=== PATIENT | female | born 1990 | race African-American/Black ===

== ENCOUNTER 2023-05-01 23:19 | Emergency (ER) | payer OTHER ==
--- OUTSIDE RECORDS SUMMARY | 2023-05-01 23:24 | XMS REPORT | Continuity of Care Document ---
:1990 Author Organization [facility] t Address [address] [facility] [place]. [address] [place] [address] Care Team Providers Name Role Phone Tiffany Huddleston Attending Clinician Unavailable Brendan Beckman Attending Clinician Unavailable DONNELL_LISA_Rk_Joss Attending Clinician Unavailable Roxann Givens Attending Clinician Unavailable Forrest Arriaza Attending Clinician Tiffany Huddleston Admitting Clinician Unavailable Brendan Beckman Admitting Clinician Unavailable DONNELL_LISA_Rk_Joss Admitting Clinician Unavailable Payers Payer Name Policy Type Policy Number Effective Date Expiration Date S ource Problems Condition Condition Condition Status Onset Resolution Last Treating Co mments Source Name Details Category Date Date Treatment Clinician Date fall Diagnosis Active 2016-06-07 Mem oria Active 06-06 03:31:00 l 06/06/2016 00:00: Regino BRAMBILA 00 [facility] Seizure Seizure Problem Resolve 2016-06-09 Armin emoria disorder disorder d 01:39:20 l (disorder) (disorder) Jonathan braxton Resolved Problem 06/09/2016 PATTY Salas History of Past Illness Condition Condition Condition Status Onset Resolution Last Treating Co mments Source Name Details Category Date Date Treatment Clinician Date Discharge Discharge Problem 2016-06-09 2016-06-09 Memoria Diagnosis: Diagnosis: 06-06 01:39:20 01:39:20 l Headache Headache 06:00: Regino n 06/06/2016 7 [facility] Discharge Discharge Problem 2016-06-09 2016-06-09 Memoria Diagnosis: Diagnosis: 06-06 01:39:20 01:39:20 l Seizure Seizure 06:00: [place] 06/06/2016 7 [facility] Allergies, Adverse Reactions, Alerts Allergy Allergy Status Severity Reaction(s) Onset Inactive Treating Comm ents Source Name Type Date Date Clinician [place] DA Active U UNKNOWN 2019- [facility] [place] REACTION 00:00: [address] Penicill DA Active U 2019- [facility] [place] 00:[facility]: [address] No Known DA Active U 2019-0 [facility] [address] [place] [address] No Known DA Active U 2020-0 [facility] [address] [place] [address] Social History Smoking Status Start Date Stop Date Source Social History [facility] Medications Ordered Filled Start Stop Current Ordering Indication Dosage Frequency Signature Comments Components Source Medication Medication Date Date Medication? 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 date: 06/06/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, Duration: 1 doses or times, Stop date: 06/06/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 Saline 2017- No Notes: Memoria Flush 0.9% 06-07 (Same as: l 00:30: BD [place] 00 Posiflush) Vital Signs Vital Name Observation Time Observation Value Comments Source Temperature Oral (F) 2016-06-07 03:30:00 97 F [facility] [place] Systolic (mm Hg) 2016-06-07 03:30:00 Ham rial [place] Diastolic (mm Hg) 2016-06-07 03:30:00 Mem orial Daljit Heart Rate 2016-06-07 03:30:00 [facility] Dalj[facility] Respitory Rate 2016-06-07 03:30:00 Memori al [place] Systolic (mm Hg) 2016-06-07 03:00:00 Ham rial Daljit Diastolic (mm Hg) 2016-06-07 03:00:00 Mem orial [place] Respitory Rate 2016-06-07 03:00:00 Memori al Daljit Heart Rate 2016-06-07 03:00:00 [facility] Respitory Rate 2016-06-07 02:00:00 Memori al Daljit Heart Rate 2016-06-07 02:00:00 [facility] Systolic (mm Hg) 2016-06-07 02:00:00 Ham rial [place] Diastolic (mm Hg) 2016-06-07 02:00:00 Mem orial [place] Height 2016-06-07 00:22:00 170.18 cm [facility] [place] Weight 2016-06-07 00:22:00 [facility] [place] BMI Calculated 2016-06-07 00:22:00 Memori al Daljit Temperature Oral (F) 2016-06-07 00:22:00 97.2 F [facility] [place] Procedures Procedure Date / Time Performed Performing Clinician Tammi bashir [id number] 2020-06-08 00:00:00 [facility] [id number] 2020-06-08 00:00:00 [facility] [id number] 2020-06-08 00:00:00 [facility] [id number] 2020-06-08 00:00:00 [facility] [id number] 2020-06-06 00:00:00 SHEGR [facility] Encounters Start End Encounter Admission Attending Care Care Encounter Source Date/Time Date/Time Type Type Clinicians Facility Department ID 2020-06-05 Inpatient DWIGHT Huddleston LD [id number] [facility] 17:00:00 Tiffany [facility] 2020-05-04 Inpatient DWIGHT Beckman FELICIANO [id number] [facility] 20:52:00 Brendan [facility] 2019-12-19 Inpatient HCAWH ISABEL [id number] [facility] 16:28:00 [facility] 2021-04-27 2021-04-27 Outpatient GC_SWHAOMC_ PRIV PRIV [id number] [facility] 06:02:00 06:02:00 Patrice [id number] [facility] 2021-03-16 2021-03-16 Inpatient EM CHARLI GivensWU ISABEL [id number] [facility] 18:03:00 19:03:[address] [place] [address] 2016-06-07 2016-06-07 Emergency [facility] [id number] Memoria 00:21:00 04:42:00 [facility] 00 l [facility] 2016-06-06 2016-06-06 Outpatient Forrest Arriaza [facility] [id number] 18:21:00 22:42:00 Major 00 Results Test Description Test Time Test Comments Results Result Comments Source HGB HCT 2020-06-09 05:55:00 Test Item Value Reference Range Interpretation Comme nts HEMOGLOBIN (test code = HGB) 9.5 g/dL 10.7-13.9 L HEMATOCRIT (test code = HCT) 28.8 % 32.1-42.1 L PROTHROMBIN [id number] 23:08:00 Test Item Value Reference Range Interpretation Comments PROTHROMBIN TIME PATIENT (test code 11.3 secs 10.4-12.4 N = PTP) IS PATIENT ON ANTICOAGULANTS ? NINTERNATIONAL NORMAL [id number] 23:08:00 Test Item Value Reference Range Interpretation Comments INTERNATIONAL NORMAL 1.05 The INR is to be used RATIO (test code = INR) only for monitoring oral anticoagulantth erapy. INDICATION INR VALUE 1. Prophylaxis inc luding high risk surge ry 2.0 - 2.52. Deep veno us thrombosis. Pul monary embolism. Atria l fibrillation or bioprosthetic h eart valves 2.0 - 3. 03. Mechanical hear t valves or recurrent sy stemic embolism. 3.0 - 3.5 IS PATIENT ON ANTICOAGULANTS ? NTHROMBOPLASTIN TIME [id number] 23:08:00 Test Item Value Reference Range Interpretation Comments THROMBOPLASTIN TIME PARTIAL (test 25.3 secs 22-38 N code = PTT) IS PATIENT ON ANTICOAGULANTS ? NLACTIC [id number] 22:50:00 Test Item Value Reference Range Interpretation Comments LACTIC ACID (test code = LACT) 1.4 MMOL/L 0.5-2.2 N COMPREHENSIVE METABOLIC [id number] 22:45:00 Test Item Value Reference Range Interpretation Comments SODIUM (test code = NA) 133 mEq/L 135-145 L POTASSIUM (test code = K) 3.4 mEq/L 3.5-5.0 L CHLORIDE (test code = CL) 100 mEq/L 100-115 N CARBON DIOXIDE (test code = CO2) 26 mEq/L 22-31 N ANION GAP (test code = GAP) 10.90 10-20 N GLUCOSE (test code = GLU) 85 mg/dL 65-110 N BLOOD UREA NITROGEN (test code = 6 mg/dL 7-18 L BUN) GLOMERULAR FILTRATION RATE (test 82 ml/min >60 N code = GFR) CREATININE (test code = CREAT) 0.9 mg/dL 0.5-1.0 N TOTAL PROTEIN (test code = PROT) 6.6 gm/dL 6.3-8.2 N ALBUMIN (test code = ALB) 2.3 gm/dL 3.4-4.8 L CALCIUM (test code = CA) 9.1 mg/dL 8.4-10.2 N BILIRUBIN TOTAL (test code = BILT) 0.4 mg/dL 0.2-1.0 N SGOT/AST (test code = AST) 17 units/L 15-37 N SGPT/ALT (test code = ALT) 20 units/L 12-78 N ALKALINE PHOSPHATASE TOTAL (test 99 units/L 46-116 N code = ALKP) CBC W/AUTO [id number] 22:36:00 Test Item Value Reference Range Interpretation Comments WHITE BLOOD CELL (test code = WBC) 12.5 K/mm3 6.6-12.1 H RED BLOOD CELL (test code = RBC) 3.72 M/mm3 3.45-5.01 N HEMOGLOBIN (test code = HGB) 11.1 g/dL 10.7-13.9 N HEMATOCRIT (test code = HCT) 34.0 % 32.1-42.1 N MEAN CELL VOLUME (test code = MCV) 91 fL 84.1-94.8 N MEAN CELL HGB (test code = MCH) 29.8 pg 27-35 N MEAN CELL HGB CONCETRATION (test 32.6 gm/dL 32.2-34.1 N code = MCHC) RED CELL DISTRIBUTION WIDTH (test 12.6 % 12.4-16.5 N code = RDW) PLATELET COUNT (test code = PLT) 203 K/mm3 133-385 N MEAN PLATELET VOLUME (test code = 11.1 fl 9.1-12.7 N MPV) NEUTROPHIL % (test code = NT%) 84.5 % 56.5-79.4 H LYMPHOCYTE % (test code = LY%) 7.5 % 14.3-34.3 L MONOCYTE % (test code = MO%) 7.4 % 5.1-10.4 N EOSINOPHIL % (test code = EO%) 0.0 % 0.1-3.0 L BASOPHIL % (test code = BA%) 0.1 % 0.1-1.0 N NEUTROPHIL # (test code = NT#) 10.6 K/mm3 LYMPHOCYTE # (test code = LY#) 0.9 K/mm3 MONOCYTE # (test code = MO#) 0.9 K/mm3 EOSINOPHIL # (test code = EO#) 0 K/mm3 BASOPHIL # (test code = BA#) 0.0 K/mm3 RBC MORPHOLOGY REQUIRED (test code NORMAL NORMAL = RBCM) PLATELET MORPHOLOGY REQUIRED (test NORMAL NORMAL code = PLTMR) COMPREHENSIVE METABOLIC [id number] 22:14:00 Test Item Value Reference Range Interpretation Comments SODIUM (test code = NA) 133 mEq/L 135-145 L POTASSIUM (test code = K) 3.7 mEq/L 3.5-5.0 N CHLORIDE (test code = CL) 99 mEq/L 100-115 L CARBON DIOXIDE (test code = CO2) 26 mEq/L 22-31 N ANION GAP (test code = GAP) 12.20 10-20 N GLUCOSE (test code = GLU) 82 mg/dL 65-110 N BLOOD UREA NITROGEN (test code = 6 mg/dL 7-18 L BUN) GLOMERULAR FILTRATION RATE (test 82 ml/min >60 N code = GFR) CREATININE (test code = CREAT) 0.9 mg/dL 0.5-1.0 N TOTAL PROTEIN (test code = PROT) 6.5 gm/dL 6.3-8.2 N ALBUMIN (test code = ALB) 2.6 gm/dL 3.4-4.8 L CALCIUM (test code = CA) 8.9 mg/dL 8.4-10.2 N BILIRUBIN TOTAL (test code = 0.5 mg/dL 0.2-1.0 N BILT) SGOT/AST (test code = AST) 27 units/L 15-37 N SGPT/ALT (test code = ALT) 22 units/L 12-78 N ALKALINE PHOSPHATASE TOTAL (test 107 units/L 46-116 N code = ALKP) URIC [id number] 22:14:00 Test Item Value Reference Range Interpretation Comments URIC ACID (test code = URIC) 4.7 mg/dL 2.6-6.0 N LACTIC DEHYDROGENASE(LDH)2020-06-07 22:14:00 Test Item Value Reference Range Interpretation Comments LACTIC DEHYDROGENASE(LDH) (test 188 units/L 81-234 N code = LDH) UR PROTEIN/CREATININE [id number] 22:07:00 Test Item Value Reference Range Interpretation Comments UR PROTEIN RANDOM (test code = 30.4 mg/dL PROTU) UR CREATININE RANDOM (test 75.2 mg/dL code = CREATU) PROTEIN/CREATININE RATIO (test 400.0 mg/gcrea <200 H code = P/CRATIO) CBC W/AUTO [id number] 21:48:00 Test Item Value Reference Range Interpretation Comments WHITE BLOOD CELL (test 12.4 K/mm3 6.6-12.1 H RESUL TS VERIFIED BY code = WBC) REPEAT ANALYSIS RED BLOOD CELL (test 3.73 M/mm3 3.45-5.01 N code = RBC) HEMOGLOBIN (test code = 11.0 g/dL 10.7-13.9 N HGB) HEMATOCRIT (test code = 33.7 % 32.1-42.1 N HCT) MEAN CELL VOLUME (test 90 fL 84.1-94.8 N code = MCV) MEAN CELL HGB (test code 29.5 pg 27-35 N = MCH) MEAN CELL HGB 32.6 gm/dL 32.2-34.1 N CONCETRATION (test code = MCHC) RED CELL DISTRIBUTION 12.5 % 12.4-16.5 N WIDTH (test code = RDW) PLATELET COUNT (test 218 K/mm3 133-385 N code = PLT) MEAN PLATELET VOLUME 11.0 fl 9.1-12.7 N (test code = MPV) NEUTROPHIL % (test code 83.6 % 56.5-79.4 H = NT%) LYMPHOCYTE % (test code 7.7 % 14.3-34.3 L = LY%) MONOCYTE % (test code = 8.1 % 5.1-10.4 N MO%) EOSINOPHIL % (test code 0.0 % 0.1-3.0 L = EO%) BASOPHIL % (test code = 0.1 % 0.1-1.0 N BA%) NEUTROPHIL # (test code 10.4 K/mm3 = NT#) LYMPHOCYTE # (test code 1.0 K/mm3 = LY#) MONOCYTE # (test code = 1.0 K/mm3 MO#) EOSINOPHIL # (test code 0 K/mm3 = EO#) BASOPHIL # (test code = 0.0 K/mm3 BA#) RBC MORPHOLOGY REQUIRED NORMAL NORMAL (test code = RBCM) PLATELET MORPHOLOGY NORMAL NORMAL REQUIRED (test code = PLTMR) AG HEPATITIS B [id number] 22:33:00 Test Item Value Reference Range Interpretation Comments AG HEPATITIS B SURFACE (test code NONREACTIVE NONREACTIVE = HBSAG) IS CONSENT FORM SIGNED FOR HIV TESTING? YAB HEPATITIS C [id number] 22:33:00 Test Item Value Reference Range Interpretation Comments AB HEPATITIS C (test code = NONREACTIVE NONREACTIVE HCVAB) SIGNAL TO CUTOFF (test code = <0.02 <0.80 N CUTOFF) IS CONSENT FORM SIGNED FOR HIV TESTING? YAB [id number] 22:33:00 Test Item Value Reference Range Interpretation Comments AB TREPONEMA (test code = TREPAB) NONREACTIVE NONREACTIVE IS CONSENT FORM SIGNED FOR HIV TESTING? YAB HIV 1 22:33:00 Test Item Value Reference Range Interpretation Comments AB HIV 1 2 (test NONREACTIVE NONREACTIVE [facility] code = EQP47RD) 4th Gen HIV Ag/Ab Combo Screen IS CONSENT FORM SIGNED FOR HIV TESTING? YAG HEPATITIS B [id number] 22:02:00 Test Item Value Reference Range Interpretation Comments AG HEPATITIS B SURFACE (test code NONREACTIVE NONREACTIVE = HBSAG) IS CONSENT FORM SIGNED FOR HIV TESTING? YAB HEPATITIS C [id number] 22:02:00 Test Item Value Reference Range Interpretation Comments AB HEPATITIS C (test code = HCVAB) NONREACTIVE SIGNAL TO CUTOFF (test code = CUTOFF) <0.80 IS CONSENT FORM SIGNED FOR HIV TESTING? YAB [id number] 22:02:00 Test Item Value Reference Range Interpretation Comments AB TREPONEMA (test code = TREPAB) NONREACTIVE NONREACTIVE IS CONSENT FORM SIGNED FOR HIV TESTING? YAB HIV 1 22:02:00 Test Item Value Reference Range Interpretation Comments AB HIV 1 2 (test code = [id number]) NONREACTIVE IS CONSENT FORM SIGNED FOR HIV TESTING? YCBC W/AUTO [id number] 21:17:00 Test Item Value Reference Range Interpretation Comments WHITE BLOOD CELL (test code = WBC) 5.6 K/mm3 6.6-12.1 L RED BLOOD CELL (test code = RBC) 3.71 M/mm3 3.45-5.01 N HEMOGLOBIN (test code = HGB) 10.9 g/dL 10.7-13.9 N HEMATOCRIT (test code = HCT) 33.4 % 32.1-42.1 N MEAN CELL VOLUME (test code = MCV) 90 fL 84.1-94.8 N MEAN CELL HGB (test code = MCH) 29.4 pg 27-35 N MEAN CELL HGB CONCETRATION (test 32.6 gm/dL 32.2-34.1 N code = MCHC) RED CELL DISTRIBUTION WIDTH (test 12.6 % 12.4-16.5 N code = RDW) PLATELET COUNT (test code = PLT) 222 K/mm3 133-385 N MEAN PLATELET VOLUME (test code = 11.1 fl 9.1-12.7 N MPV) NEUTROPHIL % (test code = NT%) 70.0 % 56.5-79.4 N LYMPHOCYTE % (test code = LY%) 20.5 % 14.3-34.3 N MONOCYTE % (test code = MO%) 8.7 % 5.1-10.4 N EOSINOPHIL % (test code = EO%) 0.4 % 0.1-3.0 N BASOPHIL % (test code = BA%) 0.2 % 0.1-1.0 N NEUTROPHIL # (test code = NT#) 3.9 K/mm3 LYMPHOCYTE # (test code = LY#) 1.2 K/mm3 MONOCYTE # (test code = MO#) 0.5 K/mm3 EOSINOPHIL # (test code = EO#) 0.02 K/mm3 BASOPHIL # (test code = BA#) 0.0 K/mm3 RBC MORPHOLOGY REQUIRED (test code NORMAL NORMAL = RBCM) PLATELET MORPHOLOGY REQUIRED (test NORMAL NORMAL code = PLTMR) COVID 19 Asymptomatic IH [id number] 18:02:00 Test Item Value Reference Range Interpretation Comments COVID 19 NEGATIVE NEGATIVE This test has b een Asymptomatic IH AG authorize d only for the (test code = detection ofpro teins from COVNONPUIAG) SARS-CoV-2, not for any other viruses orpathogens. Ne gative results should be treated as presumptive andconfirmed wi th a molecular assay , if necessary for patientmanageme nt. Negative result s do not rule out COVID- 19 andshould not b e used as the sole basis for treatment orpat ient management deci sions, including infec tion controldecision s. Negative result s should be considered i n thecontext of a patient's recent exposure s, history and thepresence of clinical signs and symptoms consis tent withCOVID-19. T his test has not been FD A cleared or approved; th e test hasbeen authori zed by FDA under an Emerge ncy Use Authorization(E UA) for use by tamanna monroy certified under the CLIA thatmeet the re quirements to perform mode rate, high or waivedcomple xity tests. This dg t is authorized for use at thePoint of Car e (POC), i.e., in patien t care settingsoperati ng under a CLIA Certificat e of Waiver, Certifi moo ofCompliance, o r Certificate of Accreditation. This test is only authori mateus for the duration of thedeclaration that circumstances e xist justifying theauthorizatio n of emergency use o f in vitro diagnostic test sfor detection and/o r diagnosis of CO VID-19 under Telfeqo04 4(b)(1) of the Act, 21 U.S .C. 360bbb-3(b)(1), unless theauthorizatio n is terminated or r evoked sooner. - US FET BIO PH [place] W/O [id number] 22:59:00 [facility] 1990 Sex: FPatient Name: OSMANY POLLACK Unit No: [id number] EXAMS: CPT CODE: [id number] [place]ET [place] W/ONST 11332 biophysical profile dated 05/04/2020. HISTORY: 36 week IUP. Decreased movement. A limited transabdominal obstetrical ultrasound was performed for biophysical profile determination. The ultrasound reveals presence of a single intrauterine in cephalic position. cardiac activity is documented with a heart rate of 157 bpm. The placenta is anteriorly positioned and demonstrates grade 2 echotexture. There is no evidence of placenta previa. Amniotic fluid volume appears within normal limits with a measured DIONISIO of 11.5 cm. The cervix is not well visualized. measurements were not obtained. A anatomic survey was not performed. The fetus meets the biophysicalprofile criteria for breathing movement, gross body movement, tone and amniotic fluid volume giving a biophysical profile score of 8/8. IMPRESSION: 1. Single living intrauterine in cephalic position. 2. biophysical profile score of 8/8. SL: 131 at 2259 Reported and signed by: Tylor Jarrell MD CC: Nayana Augustin MD; Brendan Beckman Technologist: Poppy Arias RDMS Probe: Trnscrbd D/ (163) t.SDR.DMM Orig Print D/T: S: 05/04/2020 (8554) [facility] Department PHYS: Nayana Maldonado MD [address] : 1990 AGE: 29 SEX: F [place] [address] LOC: KaitlynFELICIANO PHONE #: [phone] EXAM DATE: 05/04/2020 STATUS: REG ER FAX #: [phone] RAD NO: Page 1 Signed Report Patient Name: VINCE POLLACKOINETTE Unit No: [id number] EXAMS: CPT CODE: [id number] [facility] BIO PH [place] W/O NST [address]92 (Continued) [facility] Radiology Department PHYS: Nayana Maldonado MD[address] : 1990 AGE: 29 SEX: F [place] [address] LOC: KaitlynFELICIANO PHONE #: [phone] EXAM DATE: 05/04/2020 STATUS: REG ER FAX #: [phone] RAD NO: Page 2 Signed ReportUA RFLX MICR CULT IF [id number] 21:14:00 Test Item Value Reference Range Interpretation Comments UA COLOR (test code = COLU) YELLOW YELLOW UA APPEARANCE (test code = Slightly-Cloudy CLEAR APPU) UA GLUCOSE DIPSTICK (test 1+ NEG A code = DGLUU) UA BILIRUBIN DIPSTICK (test NEGATIVE NEG code = BILU) UA KETONE DIPSTICK (test code NEGATIVE NEG = KETU) UA SPECIFIC GRAVITY (test 1.009 1.001-1.035 N code = SGU) UA BLOOD DIPSTICK (test code NEG NEG = ML) UA PH DIPSTICK (test code = 7.0 5-9 LORI) UA PROTEIN DIPSTICK (test NEGATIVE NEG code = PROU) UA UROBILINIOGEN DIPSTICK NEGATIVE mg/dL NEG (test code = URO) UA NITRITE DIPSTICK (test NEG NEG code = MARI) UA LEUKOCYTE ESTERASE NEG NEG DIPSTICK (test code = LEUU) UA WBC (test code = WBCU) 0-2 #/hpf NONE SEEN UA RBC (test code = RBCU) 0-2 #/hpf NONE SEEN UA EPITHELIAL CELLS (test RARE #/HPF RARE-FEW code = EPIU) UA BACTERIA (test code = RARE /HPF RARE-FEW BACU) Indication for culture: Suprapubic PainSpecimen Description: CLEAN CATCH- US EXTREM NON VASC [id number] 18:47:00 Patient Name: OSMANY POLLACK Unit No: [id number] EXAMS: CPT CODE: [id number] US EXTREM NON VASCLTD 57491 Right perianal soft tissue ultrasound. INDICATION: Intergluteal abscess. Right perianal abscess. 17 weeks . COMPARISON: None FINDINGS: In the area palpable abnormality labeled as the right perianal region, there is a heterogeneous hypoechoic circumscribed lobulated elongated collection present. Some vascularity within may be within septations. Posterior acoustic enhancement is seen.The collection measures 3.1 x 1.1 x 1.5 cm appearing 3-4 mm deep from the skin. IMPRESSION: Findingsconsistent with a right perianal abscess or phlegmon. SL: SG-H at 1847 Reported and signed by: Gera Wu MD CC: Job Colindres MD Te chnologist: Treva Wild RDMS, RVT Probe: Trnscrbd D/ (184) DomenicoR.[email or web address] Orig Print D/T: S: 12/19/2019 (185) [facility] NAME: OSMANY POLLACK Radiology Department PHYS: BRANDEESH.14 - Job Colindres MD [address] : 1990 AGE: 29 SEX: F [place], [place] [address] LOC: KaitlynERS PHONE #: [phone] EXAM DATE: 12/19/2019 STATUS: REG ER FAX #: [phone] RAD NO: Page 1 Signed Report Patient Name: OSMANY POLLACK Unit No: [id number] EXAMS: CPT CODE: [id number] US EXTREM NON VASC LTD [address]3834 (Continued) [facility] [place] [facility] NAME: OSMANY GUADALUPE Radiology Department PHYS: Job Hunter MD [address] : 1990 AGE: 29 SEX: F [place], [place] [address] LOC: JANNETTE PHONE #: [phone] EXAM DATE: 12/19/2019 STATUS: REG ER FAX #: [phone] RAD NO: Page 2 Signed ReportNOV[id number] 00:40:00 Test Item Value Reference Range Interpretation Comments eGFR (test code = eGFR) 107 [facility]2017-01-09 00:40:00 Test Item Value Reference Range Interpretation Comments Calcium Lvl (test code = Calcium Lvl) 8.7 8.5-10.5 [facility]2017-01-09 00:40:00 Test Item Value Reference Range Interpretation Comments CO2 (test code = CO2) 24 24-32 [facility]2017-01-09 00:40:00 Test Item Value Reference Range Interpretation Comments Potassium Lvl (test code = Potassium 3.6 3.5-5.1 Lvl) [facility]2017-01-09 00:40:00 Test Item Value Reference Range Interpretation Comments Chloride Lvl (test code = Chloride Lvl) 103 95-109 [facility]2017-01-09 00:40:00 Test Item Value Reference Range Interpretation Comments Glucose Lvl (test code = Glucose Lvl) 80 70-99 [facility]2017-01-09 00:40:00 Test Item Value Reference Range Interpretation Comments Creatinine Lvl (test code = Creatinine 0.87 0.50-1.40 Lvl) [facility]2017-01-09 00:40:00 Test Item Value Reference Range Interpretation Comments Sodium Lvl (test code = Sodium Lvl) 137 135-145 [facility]2017-01-09 00:40:00 Test Item Value Reference Range Interpretation Comments BUN (test code = BUN) 12 7-22 [facility]2017-01-09 00:40:00 Test Item Value Reference Range Interpretation Comments AGAP (test code = AGAP) 13.6 10.0-20.0 [id number] 00:40:00 Test Item Value Reference Range Interpretation Comments S Preg (test code = S Negative *NA*(06/06/16 Preg) 6:40 PM) [id number] 00:40:00 Test Item Value Reference Range Interpretation Comments Segs-Bands # (test code = Segs-Bands #) 2.0 1.5-8.1 [facility] [id number] 00:40:00 Test Item Value Reference Range Interpretation Comments Lymphocytes # (test code = Lymphocytes 1.9 1.0-5.5 #) [facility] [id number] 00:40:00 Test Item Value Reference Range Interpretation Comments Monocytes # (test code = Monocytes #) 0.6 <=0.8 [facility] [id number] 00:40:00 Test Item Value Reference Range Interpretation Comments Segs (test code = Segs) 43.8 45.0-75.0 [facility] [id number] 00:40:00 Test Item Value Reference Range Interpretation Comments Eosinophils (test code = Eosinophils) 0.4 <=4.0 [facility] [id number] 00:40:00 Test Item Value Reference Range Interpretation Comments Basophils (test code = Basophils) 0.6 <=1.0 [facility] SouthTlngrhiZAIEHEVFDW2818-90-98 00:40:00 Test Item Value Reference Range Interpretation Comments Lymphocytes (test code = Lymphocytes) 42.7 20.0-40.0 [facility] SouthZffipycBMQJTWGKUL0051-95-34 00:40:00 Test Item Value Reference Range Interpretation Comments Monocytes (test code = Monocytes) 12.5 2.0-12.0 [facility] SouthIyexrqyNPLXWTOXSG3838-39-65 00:40:00 Test Item Value Reference Range Interpretation Comments PTT (test code = PTT) 26.3 s 22.9-35.8 [facility]uk[facility]xOCXLHUQNIH6903-52-31 00:40:00 Test Item Value Reference Range Interpretation Comments INR (test code = INR) 1.06 0.85-1.17 [facility] SouthEsgmnqxPSMLAYXWNF6232-61-85 00:40:00 Test Item Value Reference Range Interpretation Comments PT (test code = PT) 14.0 s 12.0-14.7 [facility] SouthNlwatrlPUUXNRQEEB4221-73-31 00:40:00 Test Item Value Reference Range Interpretation Comments Platelet (test code = Platelet) 184 133-450 [facility] SouthAnjoxngNKYXBWECKJ5472-11-22 00:40:00 Test Item Value Reference Range Interpretation Comments RDW (test code = RDW) 13.3 11.5-14.5 [facility] SouthKoshbsjVXFAPJGPKF9427-98-15 00:40:00 Test Item Value Reference Range Interpretation Comments MPV (test code = MPV) 9.4 7.4-10.4 [facility] SouthExfpwwrLDKSHLBEWA8681-89-68 00:40:00 Test Item Value Reference Range Interpretation Comments MCHC (test code = MCHC) 33.4 32.0-36.0 [facility] SouthOxozvxfTZYYKYRNTN2562-45-81 00:40:00 Test Item Value Reference Range Interpretation Comments Hgb (test code = Hgb) 13.7 12.0-16.0 [facility] SouthBrpxyqdVPRTNLTCWW8984-61-81 00:40:00 Test Item Value Reference Range Interpretation Comments Hct (test code = Hct) 40.9 36.0-48.0 [facility] SouthLkaqteqSTDEUKRZIK7275-63-52 00:40:00 Test Item Value Reference Range Interpretation Comments MCV (test code = MCV) 91.0 80.0-98.0 [facility] SouthJdtfzdlSQUUTYWLTM1723-93-00 00:40:00 Test Item Value Reference Range Interpretation Comments MCH (test code = MCH) 30.4 pg 27.0-31.0 [facility] SouthVgsesqbNKOEDNNNOQ4873-67-09 00:40:00 Test Item Value Reference Range Interpretation Comments RBC (test code = RBC) 4.50 4.20-5.40 [facility] HospitalGqztjkkBNVSXRGTVW4955-03-70 00:40:00 Test Item Value Reference Range Interpretation Comments WBC (test code = WBC) 4.5 3.7-10.4 [facility]2017-01-09 00:40:00 Test Item Value Reference Range Interpretation Comments UA Sq Epi (test code = UA Sq Epi) Few /LPF [facility] AND [id number] 00:40:00 Test Item Value Reference Range Interpretation Comments UA WBC (test code = UA WBC) 0-2 /HPF [facility] AND [id number] 00:40:00 Test Item Value Reference Range Interpretation Comments UA RBC (test code = UA RBC) 6-10 /HPF <=2 [facility] AND [id number] 00:40:00 Test Item Value Reference Range Interpretation Comments UA Bacteria (test code = UA Few /HPF Bacteria) [facility] AND [id number] 00:40:00 Test Item Value Reference Range Interpretation Comments UA Leuk Est (test Negative (06/06/16 6:40 code = UA Leuk Est) PM) [facility] AND [id number] 00:40:00 Test Item Value Reference Range Interpretation Comments UA Nitrite (test code Negative (06/06/16 6:40 = UA Nitrite) PM) [facility] AND [id number] 00:40:00 Test Item Value Reference Range Interpretation Comments UA Urobilinogen (test code = UA 0.2 0.1-1.0 Urobilinogen) [facility] AND [id number] 00:40:00 Test Item Value Reference Range Interpretation Comments UA Blood (test code = Large *ABN*(06/06/16 UA Blood) 6:40 PM) [facility] AND [id number] 00:40:00 Test Item Value Reference Range Interpretation Comments UA Spec Grav (test code = UA Spec 1.025 1 Grav) [facility] AND [id number] 00:40:00 Test Item Value Reference Range Interpretation Comments UA Color (test code = Yellow *NA*(06/06/16 6:40 UA Color) PM) [facility] AND [id number] 00:40:00 Test Item Value Reference Range Interpretation Comments UA Bili (test code = Negative *NA*(06/06/16 UA Bili) 6:40 PM) [facility] AND [id number] 00:40:00 Test Item Value Reference Range Interpretation Comments UA Turbidity (test code = Clear (06/06/16 6:40 UA Turbidity) PM) [facility] AND [id number] 00:40:00 Test Item Value Reference Range Interpretation Comments UA Ketones (test code = Trace *ABN*(06/06/16 UA Ketones) 6:40 PM) [facility] AND [id number] 00:40:00 Test Item Value Reference Range Interpretation Comments UA Glucose (test code Negative (06/06/16 6:40 = UA Glucose) PM) [facility] AND [id number] 00:40:00 Test Item Value Reference Range Interpretation Comments UA Protein (test code Negative (06/06/16 6:40 = UA Protein) PM) [facility] AND [id number] 00:40:00 Test Item Value Reference Range Interpretation Comments UA pH (test code = UA pH) 6.0 1 5.0-8.0 [facility] Notes Date/Time Note Provider Source 2021-03-16 18:39:00 [id number]:39:[address] [facility] ([facility])EMERGENCY PROVIDER REPORTREPORT#:[id number] REPORT STATUS: SignedDATE:03/16/21 TIME: 1838 PATIENT: OSMANY POLLACK UNIT #: [id number]#: [id number] ROOM/BED:AGE: 30 SEX: F PCP PHYS: Brendan Beckman MDSERVICE AUTHOR: Gera Gallo LOCATION: [facility] * ALL edits or amendments must be made on the electronic/computer document * Gera Gallo 03/16/211838:HPI-Ankle Prob/Inj Free Text HPI NotesFree Text HPI NotesPatient presents ER with right ankle insect bite as well as sore throat that both began on 03/14/2021. Patient denies an y shortness of breath or trouble swallowing. Patient also states that there is no drainage from rash. Patient believes it was an insect bite. GeneralConfirmed Patient YesPatient Type New patientInitial Greet Date/Time 03/16/211804 PresentationChief Complaint Pain RHx Obtained From PatientOnset Occurred Days ago (4)Symptom Duration Waxes and wanesProgression since Onset Waxes and wanesCaused by No trauma by historyTiming of Trauma Date of Trauma 03/14/21 Time of Trauma 1200Location Ankle RQuality AchingRadiation Does not radiateSeverity: Onset ModerateSeverity: Current ModerateAssociated withReports: Rash. Denies: Calf pain, Calf swelling, Cold extremity, Fever, Gait abnormality, Joint swelling, Neuro symptoms pre-arriv, Numbness, Painful extremity, Swollen extremity, Unable to walk, Weak extremity, Weakness. Associated Other Pt denies other symptomsExacerbated by NothingRelieved by Betsy sharma ContextRelated HistoryDenies: Coagulation disorder, Deep vein thrombosis, Gout, Osteoarthritis, Osteomyelitis, Pseudogout, Refle x symp dystrophy, Rheumatoid arthritis, Sickle brian l disease, Tendonitis. Immunization Status General Unknown Review of Systems ROS StatementsAll systems rev neg except as marked. Focused Review of SystemsConstitutionalDenies: Chills, Fatigue, Fever, Lethargy, Malaise, Recent wt loss, Weakness - generalized. MusculoskeletalReports: Back pain. Denies: Extremity pain, Extremity swelling, Joint pain, Joint swelling, Lumbar pain, Myalgia, Neck pain, Thoracic pain. SkinReports: Rash. Denies: Abrasion, Abscess, Burn, Contusion, Diaphoresis, Erythema, Itching, Jaundice, Laceration, Swelling, Ulceration. NeurologicDenies: Abnormal movement, Bladder dysfunction, Bowel dysfunction, Change LOC, Confusion, Dizziness, Focal weakness, Generalize d weakness, Headache, Lightheaded, Numbness, Problem walking, Seizure, Shaking, Slurred speech, Spinning sensation, Syncope, Tingling, Unable to speak, Vision change. Additional Revie w of SystemsEars/Nose/ThroatReports: Sore throat. Denies: Ear drainage R, Ear drainage L, Ear drainage bilat, Ear ringing R, Ear ringing L, Ea r ringing bilat, Earache R, Earache L, Earache bilat, Hearing loss R, Hearing loss L, Hearing loss bilat, Mouth pain, Nasal congestion, Nose bleeding, Sinus problem, Throat pain, Throat swelling, Tongue pain, Tongue swelling, Toothache, Voice change. Past Medical History - AdultStated Complaint INSECT BITE ON ANKLEAllergiesCoded Allergies:Penicillins (UNKNOWN CHILDHOOD REACTION 05/04/20) Home MedicationsActive ScriptsIBUPROFEN (MOTRIN) 600 MG PO Q6H PRN PRN MILD PAIN (SCALE 1-3) IBUPROFE N (MOTRIN) 600 MG PO Q6H PRN PRN MILD PAIN (SCALE 1-3) #20 TAB Prov: 06/10/20 Reported MedicationsPNV WITH FE FUMARATE/FA () 1 TAB PO DAILY Review of Nursing Notes Rev avail, and agreeSmoking status: Smoking status for patients 13 years old or older: Never Smoker Physical Exam Vital SignsVital SignsFirst Documented: Result Date Time Pulse Ox 98 03/16 1825 B/P 118/81 03/16 1825 B/P Mean 93 03/16 1825 O2 Delivery Room air 03/16 1825 Temp 36.1 03/16 182 Pulse 95 03/16 182 Resp 16 03/16 182 5 Last Documented: Result Date Time Pulse Ox 98 03/16 1825 B/P 118/81 03/16 1825 B/P Mean 93 03/16 1825 O2 Delivery Room air 03/16 1825 Temp 36.1 03/16 182 Pulse 95 03/16 182 Resp 16 10/ 8 1825 Review of Vital Signs Reviewed Focused PEGeneral/Const General/Const Awake, Alert, Well appearingMS Ankle/Foot Ankle/Foot No swelling , No erythema, No deformity, Neurologic intact, Vascular intact, No ligamentous injury, Tendon function NL, No edema Text/Dict NoteMild erythem a and puncture wound noted to right ankle no discharge, no tenderness palpation no desquamation of skin noted on examSkin Skin Garfield r NL, Warm, Dry, Intact, Turgor NL, No swellingNeurologic Neurologic Oriented X3, Speec h NL, No motor deficits, No sensory deficits Additional PEEars/Nose/Throat Pharynx/Tonsils/Uvula Pharyngeal erythema. Negative: Tonsillar erythema R, Tonsillar erythema L, Tonsillar exudate R, Tonsillar exudate L, Tonsillar swelling R, Tonsillar swelling L, Peritonsil abscess R, Peritonsil abscess L, Trismus present, Epiglottis enlarged, Epiglottis erythematous, Uvula deviated R, Uvula deviated L, Uvula edematous, Uvula enlarged, Uvula erythematous. Interpretation Diagnostics Lab Results Interpretation Lab StatementLaboratory studies reviewed and considered in the medical decision-making. Point of Care TestingPulse Oximetry Pulse Ox % 98 On: Room air Interpretation Interpreted by me Time 1824 Re-Evaluation MDM Free Text MDM NotesAdditional Text DISCUSSED, ALL LABS/DIAGNOSTIC EXAMS PROCEDURES DONE TODAY ARE ESSENTIALLY NORMAL AND DID NOT SHOW ANY LIFE THREATENING CONDITIONS.Follow-up instructions have been explained in detail to the patient, servando huggins the instructions have been provided in written format. The patient is comfortable with the plan of care and has expressed an understanding of th e discharge instructions. The patient is aware lito t any significant change in condition or worsening of symptoms should prompt an immediate call to the primary or designated physician. If that is not successful the patient should call or return to this or the closest emergency department or call 911.pt is nontoxic appearing, drinking fluids and active in ERIt has been a pleasure treating you today. Patient can also follow-up with their regular PCP. Please take all medications as prescribed. Return to the closest ER if your symptoms worsen or change or call 911 . Re-Evaluation/Progress Compartment SyndromeThere are no signs or symptoms of compartment syndrome in the injured extremity at the time of this examination. Any pain the patient has is in proportion to the injury, the peripheral circulation is intact, capillary refill is not delayed, and there is no numbness, tingling or paresthesia. Tissue Perfusion ReassessmentPatient tissue perfusion reassessmen t completed. Patient Discharge Departure Vital Signs/ConditionVital SignsFirst Documented: Result Date Time Pulse Ox 98 03/16 1825 B/P 118/81 03/16 1825 B/P Mean 93 03/16 1825 O2 Delivery Room air 03/16 1825 Temp 36.1 03/16 182 Pulse 95 03/16 1825 Resp 16 03/16 1825 Last Documented: Result Date Time Pulse Ox 98 03/16 1825 B/P 118/81 03/16 1825 B/P Mean 93 03/16 1825 O2 Delivery Room air 03/16 1825 Temp 36.1 03/16 1825 Pulse 95 03/16 1825 Resp 16 03/16 1825 All vital signs available at the time of this entry have been reviewed. Condition Stable Clinical ImpressionClinical ImpressionPrimary Impression: INSECT BITE RIGHT ANKLESecondary Impressions: ACUTE BACTERIAL PHARYNGITIS Disposition DecisionDischarge )( Discharged to Home Yes )( Time 184 )( Date 03/16/21 Discharge/Care PlanCounseled Regarding Diagnosis , Prescriptions, Need for follow-up, When to returnto EDPrescriptionsclindamycin(Auto) PrescriptionsCurrent Visit ScriptsCLINDAMYCIN HC L (CLEOCIN) 300 MG PO Q6H 10 Days #40 CAPS Prescriptions Reviewed Risks, Benefits, Alternative treatmentPatient Instructions ED Insect Sting, Local Reaction, ED Pharyngitis, Strep (Presumed)[facility] Discharge NoteI have spoken with the patient and/or caregivers. I have explained the patient'scondition, diagnoses and treatment plan based on the information available to meat this time. I have answered the patient's and/or caregiver's questions and addressed any concerns . The patient and/or caregivers have as good an understanding of the patient's diagnosis, condition and treatment plan as can beexpected a t this point. The vital signs have been stable. Th e patient's condition is stable and appropriate fo r discharge from the emergency department. The patient will pursue further outpatient evaluatio n with the primary care physician or other designated or consulting physician as outlined i n the discharge instructions. The patient and/or caregivers are agreeable to this planof care and follow-up instructions have been explained in detail. The patient and/or caregivers have received these instructions in written format an d have expressed an understanding of the discharge instructions. The patient and/or caregivers are aware that any significant change in condition o r worsening of symptoms should prompt an immediate return to this or the closest emergency department or a call to 911. Extremity Inj Discharge NoteThe patient is discharged home wit h supportive care, a plan for pain control, and follow-up instructions that detail what to expec t over the next 48 hours andwhat symptoms should prompt immediate return to the ED, including the symptoms of compartment syndrome. Follow-up instructions have been explained in detail tothe patient, and the instructions have been provided in written format. The patient is comfortable with the plan of care and has expressed an understanding of the discharge instructions. The patient is aware that any significant change in condition or worsening of symptoms should prompt an immediate call to the primary or designated physician. If that is not successful the patient should call or return to this or the closest emergency department or call 911. Roxann Givens 03/20/21 2315:Patient Discharge Departure Supervising Physician Note MidLv Saw Pt AloneI was available for consultation as needed at all times during the patient's visit in the emergency department. I did not see this patient nor was I consulted on this patient during their time within the ED. at 0038 at 2315RPT #:[id number] OF REPORTEDEmergency department blyfii0870-52-27X69:39:00Z.[id number] a ilable for patient socsHNKXLCNQKNEXYV4311-57-53M77:38:19 2020-06-10 07:29:00 [id number]:29:00 [facility] ([facility])OB Postpart Progr NoteREPORT#:[id number] REPORT STATUS: SignedDATE:06/10/20 TIME: 728 PATIENT: OSMANY POLLACK UNIT #: [id number]#: [id number] [address] [birth year] AGE : 29 SEX: F [facility]END[facility] AUTHOR: Brendan Beckman MD * ALL edits or amendments must be made on the electronic/computer document * Subjective SubjectiveEGA at delivery (wks/days): 41 weeksStatus/Day: post (d2)Patient reports : Patient reports: Yes no complaints, Yes pain management effective, Yes tolerating po well Objective Nursing Documentation ReviewNursing Data:The data set between the solid lines has been imported from nursing documentation. Any exceptions have been noted below under Provider comments. _ Feeding preference: _ Provider comment s on imported nursing data: [] GeneralVS:Vital Signs: Date Time Temp Pulse Resp B/P B/P Pulse O2 O2 Flow FiO2 Mean Ox Delivery Rate 06/10 0410 98.5 58 18 133/84 98 06/10 0000 98.4 68 18 116/77 06/09 1610 91.0 06/09 1610 97. 5 61 18 130/67 97 06/09 1200 97.5 86 18 109/55 99 06/09 0839 97.4 63 18 116/73 99 PATIENT WEIGHT: Weight (lb): 225Weight (oz): Weight (kg): 102.05 8 Physical ExamNeuro: Exam: alert, oriented w7Eedxggr: soft, no abnormal tendernessUterus: firm, non-tenderFundus: firm, below the umbilicusLacerations: Perineal laceration(s): 1s t Degree w/vagina High vaginal laceration: no Diagnosis, Assessment Plan Diagnosis, Assessment PlanAssessment: nml progress, preeclampsia, chorioamnionitisPlan: routine care, discharge today, s/p mag to 24 hrs, BPs normalized, ASx. s/p abx to 24 hrs, afebrile. at 0729 RPT #:[id number] OF REPORT PRProgress Osok0410-95-78K48:29:00F.[id number] l able for patient ouxrWRLCBYJCSSOKGF6181-89-98U46:30:19 2020-06-09 16:58:00 [id number]:58:00 [facility])OB Postpart Progr NoteREPORT#:[id number] REPORT STATUS: SignedDATE:06/09/20 TIME: 1658 PATIENT: OSMANY POLLACK UNIT #: [id number]#: [id number] ROOM[facility]BED: [facility]-ADOB: [birth year] AGE : 29 SEX: F ATTEND: Brendan Beckman MDADM AUTHOR: Brendan Beckman MD * ALL edit s or amendments must be made on the electronic/computer document * Subjective SubjectiveAdmission EGA: Weeks: 40 Days: 6EGA at delivery (wks/days): 41 weeksStatus/Day: post (d1)Patient reports: Patient reports: Yes no complaints, Yes pain management effective, Ye s tolerating po well Comments:no PIH sx. Objective Nursing Documentation ReviewNursing Data:The ana a set between the solid lines has been imported from nursing documentation. Any exceptions have been noted below under Provider comments. _ Feeding preference: _ Provider comment s on imported nursing data: [] GeneralVS:Vital Signs: Date Time Temp Pulse Resp B/P B/P Pulse O2 O2 Flow FiO2 Mean Ox Delivery Rate 06/09 1200 97.5 86 18 109/55 99 06/09 0839 97.4 63 18 116/73 99 01/11 0606 76 20 110/57 06/09 0400 98.8 83 18 121/64 97 06/08 2300 80 20 118/78 97 06/08 2200 82 19 121/77 99 06/08 2100 82 20 124/75 97 06/08 1955 98.4 92 20 120/97 97 06/08 1800 102.0 06/08 1800 96 20 123/97 97 01/ 0 1700 96.0 06/08 1700 95 19 127/75 98 PATIENT WEIGHT: Weight (lb): 225Weight (oz): Weight (kg) : 102.058 Physical ExamNeuro: Exam: alert, oriente d k8Umsohjn: soft, no abnormal tendernessUterus: firm, non-tenderFundus: firm, below the umbilicusLacerations: Perineal laceration(s): 1s t Degree w/vagina High vaginal laceration: no ResultFindings/Data:Laboratory Tests: 06/09 509 Hematology Hgb (10.7 - 13.9 g/dL) 9.5 L Hct (32. 1 - 42.1 %) 28.8 L Diagnosis, Assessment Plan Diagnosis, Assessment PlanAssessment: nml progress, preeclampsia, chorioamnionitisPlan: routine care, discharge tomorrow, s/p mag to 24 hrs, BPs normalized, ASx. s/p abx to 24 hrs, afebrile. at 1659 RPT #:[id number] OF REPORT PRProgress Nkgj7152-82-21S71:58:00F.[id number] l able for patient byteZRQPOWNJYRTHEB2944-66-07E33:59:50 2020-06-08 01:55:00 [id number]:55:00 [facility])OB Delivery NoteREPORT#:[id number] REPORT STATUS: SignedDATE:06/08/20 TIME: 0155 PATIENT: OSMANY POLLACK UNIT #: [id number]#: [id number] ROOM/BED: 020-ADOB: [birth year] AGE: 29 SEX: F ATTEND: Brendan Beckman MDADM AUTHOR: Brendan Beckman MD * ALL edit s or amendments must be made on the electronic/computer document * OB Delivery Nursing Documentation ReviewNursing data:The ana a set between the solid lines has been imported from nursing documentation. Any exceptions have been noted below under Provider comments. _ ROM date: ROM time: Membranes rupture method: AROMAmniotic fluid color: ClearAmniotic fluid amount: Steroids prior to arrival: Antibiotic prophylaxis given: [place] evaluation at delivery: Delivery date A: Delivery time infant A: Birthweight (gm) A: Weight (lb) infant A: Weight (oz) A: Gender A : FemaleApgar 1 minute infant A: 5 minutes infant A: 10 minutes A: Cord pH obtained infant A: Vacuum time A: Vacuum # pulls A: Vacuum # popoffs A: QBL a t delivery: _ Provider comments on imported nursing data: [] Pre-deliveryNewborn evaluation at delivery: NNPAdmission EGA: Weeks: 40 Days: 6EGA at delivery (wks/days): 41 weeks Baby A InformationBaby A information Delivery date: 06/08/20 Delivery time: 0141 status: live born Wt of baby (lbs/oz): 7 Gender: female 1 minute: 8 5 minutes: 9 Presentation: vertexNuchal cord Baby A Nuchal cord: no Vaginal DeliveryVaginal delivery: Labor : induced Medications/Devices used: oxytocin, cervidil Vaginal delivery: spontaneous Amniotic fluid: meconium Anesthesia type: epidural anesthesia Episiotomy: none Episiotomy repair: not applicable Laceration repair: yes, 3-0 sutur e (chromic) Placenta: spontaneous, intact Post delivery meds used: oxytocin Count: correct, vag exam neg for sponges Vaginal packing: No Mother' s condition: mother stable 's condition: stable in roomLacerations: Perineal laceration(s): 1st Degree w/vagina High vaginal laceration: no Blood Loss/DetailsBlood loss at delivery: <1000 ml, no more than expectedEBL at delivery (ml's): 300 at 0156 RPT #:[id number] OF REPORT OBObstetric hxvg1755-92-00A26:55:00F.[id number] l able for patient qumqQSRVFBEQAJFTDM1935-41-49Q24:56:46 2020-06-07 21:18:00 [id number]:18:00 [facility])Clinical NoteREPORT#:[id number] REPORT STATUS: SignedDATE:06/07/20 TIME: 2117 PATIENT: OSMANY POLLACK UNIT #: [id number]#: [id number] ROOM/BED: [facility]-ADOB: [birth year] AGE: 29 SEX: F ATTEND: Brendan Beckman [facility] AUTHOR: Saida Fernández MD * ALL edits or amendments must be made on the electronic/computer document * Clinical NoteNote:29 y/o G1 @ 41w1d admitted for post-dates IOL. Pt complaining of MCINTOSH, resolved with positioning Exam: VSS, AAO x 4Pulm: unlabored breathingAbd: gravid, soft, no epigastric/RUQ TTPGU: /-2 FHTs Cat 2, tachycardia, 170sToco q2-4min IOL- admitted 06/05 for PM cervidil IOL- s/p cervidil x 12h, pit started 06/06 @ 10am, rest 06/07 @ 1330 and restart titration, now 20mU/min- AROM @ 0115, clear (06/07)- SVE 2 by RN @ 1820, unchanged @ 210 0 - IUPC placed- GBS neg- anticipate GHTN r/o PreE - based on mild ranging BPs >4h apart since admission- single severe ranging 172/82, repeat 153/82- will send [facility] labs, urine Pr/Cr ratio- start mag sulfate and labetalol protocol if severe features Presumed chorio- maternal temp 102F @ 2115- FHTs 170s- start amp/gent, tylenol PRN EFW 8# at 2128 RPT #:[id number] O F REPORT CLClinical fwav5751-46-95Z67:18:00F.[id number] l able for patient ongcGPITLBOSJINVIM3992-95-68S66:29:09 2020-06-07 21:18:00 [id number]:18:00 [facility])Clinical NoteREPORT#:[id number] REPORT STATUS: SignedDATE:06/07/20 TIME: 2117 PATIENT: OSMANY POLLACK UNIT #: [id number]#: [id number] ROOM/BED: [facility]-ADOB: [birth year] AGE: 29 SEX: F ATTEND: Brendan Beckman [facility] AUTHOR: Saida Fernández MD * ALL edits or amendments must be made on the electronic/computer document * See AddendumClinical NoteNote:29 y/o G1 @ 41w1d admitted for post-dates IOL. Pt complaining of MCINTOSH, resolved with positioning Exam: VSS, AAO x 4Pulm: unlabored breathingAbd: gravid, soft, no epigastric/RUQ TTPGU: /2 FHTs Cat 2, tachycardia, 170sToco q2-4min IOL- admitted 06/05 for PM cervidil IOL- s/p cervidil x 12h, pit started 06/06 @ 10am, rest 06/07 @ 1330 and restart titration, now 20mU/min- AROM @ 0115, clear (06/07)- SVE 2 by RN @ 1820, unchanged @ 210 0 - IUPC placed- GBS neg- anticipate GHTN r/o PreE - based on mild ranging BPs >4h apart since admission- single severe ranging 172/82, repeat 153- will send [facility] [place] labs, urine Pr/Cr ratio- start mag sulfate and labetalol protocol if severe features Presumed chorio- maternal temp 102F @ 2115- FHTs 170s- start amp/gent, tylenol PRN EFW 8# at 2128 Addendum 1: 06/07/202301 by Saida Fernández MD per hospital policy: Sepsis - chorio. Lactic acid < 2. at 2303 RPT #:[id number] OF REPORT CLClinical soco1528-40-68Y36:18:00F.[id number] l able for patient tngaLOCPQVZUQJFJHS8776-14-32X47:03:31 2020-06-07 21:18:00 YAflcvcxwrl012619882477-28-20K96:18:00 [facility] ([facility])Clinical NoteREPORT#:[id number] REPORT STATUS: SignedDATE:06/07/20 TIME: 2117 PATIENT: OSMANY POLLACK UNIT #: [id number]#: [id number] ROOM/BED: [facility]-ADOB: [birth year] AGE: 29 SEX: F ATTEND: Brendan Beckman MDADM AUTHOR: Saida Fernández MD * ALL edits or amendments must be made on the electronic/computer document * See AddendumClinical NoteNote:29 y/o G1 @ 41w1d admitted for post-dates IOL. Pt complaining of MCINTOSH, resolved with positioning Exam: VSS, AAO x 4Pulm: unlabored breathingAbd: gravid, soft, no epigastric/RUQ TTPGU: /-2 FHTs Cat 2, tachycardia, 170sToco q2-4min IOL- admitted 06/05 for PM cervidil IOL- s/p cervidil x 12h, pit started 06/06 @ 10am, rest 06/07 @ 1330 and restart titration, now 20mU/min- AROM @ 0115, clear (06/07)- SVE 2 by RN @ 1820, unchanged @ 210 0 - IUPC placed- GBS neg- anticipate GHTN r/o PreE - based on mild ranging BPs >4h apart since admission- single severe ranging 172/82, repeat 153/82- will send [facility] [place] labs, urine Pr/Cr ratio- start mag sulfate and labetalol protocol if severe features Presumed chorio- maternal temp 102F @ 2115- FHTs 170s- start amp/gent, tylenol PRN EFW 8# at 2128 Addendum 1: 06/07/20 2302 by Saida Fernández MD per hospital policy: Sepsis - chorio. Lactic acid < 2. at 2303 Addendum 2: 06/07/20 2304 by Saida Fernández MD PI labs WNL, Pr/Cr 0.4 - rules in for Pre Eclampsia. Monitor for severe features at 2304 RPT #:[id number] OF REPORT CLClinical eicy3063-27-89Y70:18:00F.[id number] l able for patient xuhdZHVUULWLFYSBUN7150-13-90J38:05:12 2020-06-07 13:20:00 [id number]:20:00 [facility] ([facility])Clinical NoteREPORT#:[id number] REPORT STATUS: SignedDATE:06/07/20 TIME: 1320 PATIENT: OSMANY POLLACK UNIT #: [id number]#: [id number] ROOM/BED: [facility]-ADOB: [birth year] AGE : 29 SEX: F ATTEND: Brendan Beckman [facility] AUTHOR: Saida Fernández MD * ALL edits or amendments must be made on the electronic/computer document * Clinical NoteNote:29 y/o G1 @ 41w1d admitted for post-dates IOL. Pt comfortable with epidural Exam: VSS, AAO x 4Pulm: unlabored breathingAbd: gravid, soft, NTTPGU: /-2 FHTs Cat 1Toco q4-6min IOL- admitted 06/05 for PM cervidil IOL- s/p cervidil x 12h, pit started 06/06 @ 10am- AROM @ 0115, clear (06/07)- SVE /-2@ 0930, /-2 @ 1330, pit @ 36mU/min- will rest x 30 min and restart pit titration to max 36 to achieve adequate contraction pattern, plan discussed wit h pt and she desires to proceed with IOL- GBS neg- anticipate EFW 8# at 1456 RPT #:[id number] OF REPORT CLClinical iarn5835-83-97V01:20:00F.[id number] alok able for patient gdybZYZEAEKCSBYFWV6669-80-31E49:56:22 2020-06-07 01:23:00 PGwkdyswzom823602750001-21-27O17:23:00 [facility] ([facility])Clinical NoteREPORT#:[id number] REPORT STATUS: SignedDATE:06/07/20 TIME: 0123 PATIENT: OSMANY POLLACK UNIT #: [id number]#: [id number] ROOM/BED: 020-ADOB: [birth year] AGE : 29 SEX: F ATTEND: RkBrendan S MDADM AUTHOR: Jennyfer Pearson MD * ALL edits or amendments must be made on the electronic/computer document * Clinical NoteNote:AROM performed. Small amount of clear fluid returned. IUPC placed. Patient declines epidural/pain medication.Cvx: 250/-3FHT: 140's mod variability +accles [place]: q3mins Plan:Continue pitocin augmentation Electronicall y Signed by Jennyfer Pearson MD on 06/07/20 at 012 5 RPT #:[id number] OF REPORT CLClinical ejub3721-73-77D82:23:00F.[id number] l able for patient zusrCLQQQKAWHIRSJI0210-86-82M56:25:18 2020-06-06 21:16:00 VRcmgfvkctz959990541515-62-62B79:16:00 [facility] ([facility])Clinical NoteREPORT#:[id number] REPORT STATUS: SignedDATE:06/06/20 TIME: 2115 PATIENT: OSMANY POLLACK UNIT #: [id number]#: [id number] ROOM/BED: 020-ADOB: [birth year] AGE: 29 SEX: F ATTEND: Brendan Beckman MDADM AUTHOR: Jennyfer Pearson MD * ALL edit s or amendments must be made on the electronic/computer document * Clinical NoteNote:S: Patient on birthing ball. She has no complaints. She does not want to be AROM'ed righ t now. O: Last Documented: Result Date Time B/P Mean 91.0 06/06 1903 Pulse Ox 100 06/06 1903 B/P 124/73 06/06 1903 Temp 97.9 06/06 1903 Pulse 82 06/06 1903 Resp 18 06/06 1903 Gen: NADPulm: No increased WOBGU: Cxv: 2/50/-3FHT: 130s mod variability +accels [place]: q3-4minsPitocin: 18mu/min Plan:Continue pitocin augmentationAnticipate at 2119 RPT #:[id number] OF REPORT CLClinical mwna0608-26-24V05:16:00F.[id number] alok able for patient trbtFHBBCNIKPWXODU0771-27-57E49:19:51 2020-06-06 17:07:00 EMywewmndgs716599937656-50-14R19:07:00 [facility] ([facility])Clinical NoteREPORT#:[id number] REPORT STATUS: SignedDATE:06/06/20 TIME: 1706 PATIENT: OSMANY POLLACK UNIT #: [id number]#: [id number] ROOM/BED: [facility]-ADOB: [birth year] AGE: 29 SEX: F ATTEND: Tiffany Huddleston [facility] AUTHOR: Brendan Beckman MD * ALL edit s or amendments must be made on the electronic/computer document * Clinical NoteNote:cvx 1.5-2/60/-2, still posterior.FHT 140s, Cat I.toco q2-3 min.POC d/w pt. cont pit, antic . at 1708 RPT #:[id number] OF REPORT CLClinical srma1570-78-34M62:07:00F.[id number] alok able for patient dujmSKHPXEAQTCAHXQ7369-16-37V37:08:54 2020-06-06 07:41:00 [id number]:41:00 [facility] ([facility])OB Admission / H PREPORT#:[id number] REPORT STATUS: SignedDATE:06/06/20 TIME: 740 PATIENT: OSMANY POLLACK UNIT #: [id number]#: [id number] ROOM/BED: [facility]-ADOB: [birth year] AGE: 29 SEX: F [facility] AUTHOR: Brendan Beckman MD * ALL edit s or amendments must be made on the electronic/computer document * OB HistoryChief complaint: scheduled inductionPregnancy history: : 1Current : Admission EGA (weeks) 40 Admission EGA (days) 6Conditions of : post-term pregnancyLabs: Blood type: B Rh: positive Rubella: immune Hepatitis B: negative HIV: negative STD: negative Syphilis: currently negative GBS: negativeProcedures: feta l ultrasound, genetic testing, non stress testPast medical history: denies PMHPast surgical history : denies PSHSocial history: no alcohol use, no tobacco use, no drug useFamily historyRelation not specified for: Family History: Unremarkable AllergiesCoded Allergies:Penicillins (UNKNOWN CHILDHOOD REACTION 05/04/20) Objective GeneralVS:Last Documented: Result Date Time B/P Mean 86.0 06/06 0257 B/P 127/60 06/06 0257 Pulse 76 06/06 0257 Temp 98.1 06/05 2310 Resp 18 06/05 2310 Vital Signs Date Temp Pulse Resp B/P B/P Mean Pulse Ox FiO2 06/05-06/06 98.1-98.5 76-90 18-20 109-127/60-81 78.0-98.0 PATIENT WEIGHT: Weight (lb): 225Weight (oz): Weight (kg): 102.05 8 Physical ExamHEENT: normocephalic w/o injuryNeuro: Exam: alert, oriented j5Dxryrph: gravid, soft, no abnormal tendernessUterine activity: Monitor: toco Frequency (description): irregularPelvic exam: Pelvis clinically adequate : yes, inlet appears appropriate, pubic bone configappropr, no midpelvic contraction Vulvar lesions: none, no evidence herpetic les, no evidence of other STD Vagina: normal, non-septated, w/o apparent lesionsCervical/ exam: Dilatation (cm): 0 - closed Effacement (%) : 0 Est wt (gms): 3800 Suspected macrosomia: No Suspected > 5000 grams: No station: - 2 presentation: cephalicMembranes: Membranes: IntactAdditional comments:resolving abscess R inner thighBaby A: Baby A baseline: 140 bpm Baby A variability: moderate 6-25 bpm Baby A accelerations: 15 X 15 Baby A decelerations: none Baby A FHR category: category 1 ResultFindings/Data:Laboratory Tests: 06/05 2100 Hematology WBC (6.6 - 12.1 K/mm3) 5. 6 L RBC (3.45 - 5.01 M/mm3) 3.71 Hgb (10.7 - 13.9 g/dL) 10.9 Hct (32.1 - 42.1 %) 33.4 MCV (84.1 - 94.8 fL) 90 MCH (27 - 35 pg) 29.4 MCHC (32.2 - 34.1 gm/dL) 32.6 RDW (12.4 - 16.5 %) 12.6 Plt Count (133 - 385 K/mm3) 222 MPV (9.1 - 12.7 fl) 11.1 Neut % (Auto) (56.5 - 79.4 %) 70.0 Lymph % (Auto) (14.3 - 34.3 %) 20.5 [place] % (Auto) (5.1 - 10.4 %) 8.7 Eos % (Auto) (0.1 - 3.0 %) 0.4 Baso % (Auto) (0.1 - 1.0 %) 0.2 Neut # (Auto) (K/mm3) 3.9 Lymph # (Auto) (K/mm3) 1.2 [place] # (Auto) (K/mm3) 0.5 Eos # (Auto) (K/mm3) 0.02 Baso # (Auto) (K/mm3) 0.0 Serology Treponema pallidum Ab (NONREACTIVE) NONREACTIVE Hep Bs Antigen (NONREACTIVE) NONREACTIVE Hepatitis C Antibody (NONREACTIVE) NONREACTIVE Hep C Ab Signal/Cutof f (<0.80) <0.02 HIV 1 2 Antibody (NONREACTIVE) NONREACTIVE Diagnosis, Assessment Plan Diagnosis , Assessment PlanFree Text A P:41 wks for postterm induction.cervidil to pitocin induction.antic . at 0743 RPT #:[id number] OF REPORT HPHistory and physical ggfzzcgztvr4509-04-95L30:41:00F.[id number] 7 AVAvailable for patient cusnKQWVYGZAKUHGAK3580-13-81Y72:44:20 2020-05-04 21:53:00 [id number]:53:00 [facility] ([facility])EMERGENCY PROVIDER REPORTREPORT#:[id number] REPORT STATUS: SignedDATE:05/04/20 TIME: 2152 PATIENT: OSMANY POLLACK UNIT #: [id number]#: [id number] ROOM/BED:AGE: 29 SEX: F PCP PHYS: Brendan Beckman MDSERVICE AUTHOR : Nayana Augustin MD * ALL edits or amendments must be made on the electronic/computer document * FELICIANO HistoryChief complaint: suspected ruptured memb, decreased movementHPI:29yo G1 at 36w2d with decreased movement and possible leakage of fluid x 3days. +denies vaginal bleeding or contractions. history: : 1Current : EDC: 05/30/20Past medical history: denies PMHPast surgical history : denies PSHSocial history: no alcohol use, no tobacco use, no drug useFamily historyRelation not specified for: Family History: Unremarkable Medications:Home Medications: Medication Dose/Rte/Freq Days Qty Entered Last Max Daily Dose Reviewed PNV WITH FE 1 TAB PO DAILY 0 05/04/20 FUMARATE/FA 2110 2110 () Strength: 1 EACH TAB AllergiesCoded Allergies:Penicillins (UNKNOWN CHILDHOOD REACTIO N 05/04/20) Review of SystemsAll systems rev neg: except as marked Objective GeneralVS:PATIENT WEIGHT: Weight (lb): Weight (oz): Weight (kg): 103.049995HUNOP Physical ExamHEENT: normocephali c w/o injuryNeuro: Exam: alert, oriented n7Fdmgbki : gravid, soft, no abnormal tendernessGenitourinary: no flank painUterine activity: Monitor: toco Frequency (description): irritabilityCervical/ exam: Dilatation (cm) : 0 - closed (per nurse) FHR evaluation: Baseline: 150 bpm Variability: moderate 6-25 bpm Accelerations: 15 X 15 Decelerations: none FHR category: category 1Membranes: Membranes: Intact ResultsFindings/Data:Laboratory Tests: 05/04 2055 Urines Urine Color (YELLOW) YELLOW Urine Appearance (CLEAR) Slightly-Cloudy Urine pH (5 - 9) 7.0 Ur Specific [place] (1.001 - 1.035) 1.009 Urine Protein (NEG) NEGATIVE Urine Glucose (UA) (NEG) 1+ H Urine Ketones (NEG) NEGATIVE Urine Blood (NEG) NEG Urine Nitrite (NEG) NEG Urine Bilirubin (NEG) NEGATIVE Urine Urobilinogen (NEG mg/dL) NEGATIVE Ur Leukocyte Esterase (NEG) NEG Urine RBC (NONE SEEN #/hpf) 0-2 Urine WBC (NONE SEEN #/hpf) 0-2 Ur Epithelial Cells (RARE - FEW #/HPF) RARE Urine Bacteria (RARE - FEW /HPF) RAR E Recent Impressions:ULTRASOUND - US FET BIO PH [place] W/O NST 05/04 2215 Report Impression - Status : SIGNED Entered: 05/04/2020 2309 IMPRESSION:1. Single living intrauterine in cephalic position.2. biophysical profile score of 8/8. SL: 131Impression By: Teresa Jarrell MD ROM test: negative Diagnosis, Assessment Plan Diagnosis, Assessment PlanFree Text A P:A: 29yo G1 at 36w2d with decreased feta l movement, round ligament pain, and suspected ROM not found P: Patient evaluated in FELICIANO. BPP 8. UA negative for infection. Discharge home with labor precautions. Keep scheduled OB appointment . RTC prn at 0328 RPT #:[id number] OF REPORT OBObstetric bnsj7180-04-87F24:53:00F.[id number] alok able for patient evnoUZAPEFMIDDYUEB9967-62-43Z77:28:27 2019-12-19 16:54:00 [id number]:54:00 [facility] REPORTREPORT#:[id number] REPORT STATUS: SignedDATE:12/19/19 TIME: 1653 PATIENT: OSMANY POLLACK UNIT #: [id number]#: [id number] ROOM/BED:AGE: 29 SEX: F PCP PHYS: N o Primary or Family PhysicianSERVICE AUTHOR: Job Colindres MD * ALL edits or amendments must be made on the electronic/computer document * HPI-Rash/Abscess/Cellulitis GeneralConfirmed Patient YesInitial Greet Date/Time 12/19/19 1630[facility] PresentationChief Complaint Abscess Free Text HPI NotesFree Text HPI Kngcg57-dupf-fpz female at 17 weeks presenting for right inferior labial pain and swelling for 2 months s/p abx ? cephalexin every 6 hours completed by the patient with no relief and pain with sitting and wearing underwear. Pt denies an y vaginal bleeding, fevers or chills/drainage. Review of Systems ROS StatementsAll systems rev neg except as marked. Basic Review of SystemsBasic ROS : No dysuria/frequency, HEM: No bleeding/bruising, NEURO: No change MS, NEURO : No focal deficit, PSYCH: NL thought content Focused Review of SystemsConstitutionalDenies: Chills, Fever, Malaise. RespiratoryDenies: Cough , non-productive, Dyspnea on exertion, Shortness o f breath. CardiovascularDenies: Chest pain, Dyspne a on exertion, Edema. GIDenies: Abdominal pain, Constipation, Diarrhea, Nausea, Vomiting. MusculoskeletalDenies: Back pain, Joint pain, Myalgia. SkinReports: Abscess. Denies: Erythema, Rash. Allergy/ImmunDenies: Allergic reaction, Hives, Rhinorrhea. Past Medical History - AdultStated Complaint ABSCESSAllergiesCoded Allergies:No Known Allergies (12/19/19) Home MedicationsReported MedicationsNo Known Home Medications Smoking status for patients 13 years old or older: Never Smoker Physical Exam Vital SignsVital SignsFirst Documented: Result Date Time Pulse Ox 98 12/18 1637 B/P 115/60 12/18 163 7 B/P Mean 78 12/18 1637 O2 Delivery Room air 11/28 2 1637 Temp 36.7 12/18 1637 Pulse 86 12/18 1637 Resp 18 12/18 1637 Last Documented: Result Date Time Pulse Ox 98 12/18 1637 B/P 115/60 12/18 163 7 B/P Mean 78 12/18 1637 O2 Delivery Room air 12/18 1637 Temp 36.7 12/18 1637 Pulse 86 12/18 1637 Resp 18 12/18 163 Review of Vital Signs Reviewed Basic Physical ExamBasic PE HEAD: Atraumatic/NC, EYES: PERRL, conj clear, RESP: No resp distress, CV: Reg rate rhythm, ABD: Soft/non-tender, EXT: No gross abnormality, NEURO: alert oriented, NEURO: gross movement NL, PSYCH: NL thought content Focused PEGeneral/Cons t General/Const Awake, Alert, No acute distress , Well appearingResp/Chest Respiratory/Chest Atraumatic, Breath sounds NL, No respiratory distress, No retractionsCardiovascular Cardiovascular Heart rate NL, Regular rhythm, Heart sounds NL, Peripheral circulation NLMS Upper Extrem Upper Extremity/MS Atraumatic, Inspection NL, No swelling, No deformityMS Lower Extrem Lower Ext/Pelvis/MS Atraumatic, Inspectio n NL, Non-tender, Neurologic intactSkin Skin Atraumatic, Color NL, No rash, Turgor NL Text/Dict Notes+ right intergluteal/perianal abscessNeurologic Neurologic Oriented X3, Speech NL, CN II - XII intact, Memory NL Re-Evaluation [facility] ED CourseMedication(s) OrderedMedication(s) Ordered:Central Nervous System Agents Sig/Monica Start time Last Medication Dose Route Stop Time Status Admin Hydrocodone Bitart/ 1 TAB X1ED STA 12/18 1703 DC 12/18 Acetaminophen PO 12/18 1704 1727 Gastrointestinal Drugs Sig/Monica Start time Last Medication Dose Route Stop Time Status Admi n Ondansetron Base 4 MG X1ED STA 12/18 1703 DC 12/18 PO 12/18 1704 1727 Patient Discharge Departure Vital Signs/ConditionVital SignsFirst Documented: Result Date Time Pulse Ox 98 12/18 1637 B/P 115/60 12/18 1637 B/P Mean 78 12/18 1637 O2 Delivery Room air 12/18 1637 Temp 36.7 12/18 1637 Pulse 86 12/18 1637 Resp 18 12/18 1637 Last Documented: Result Date Time Pulse Ox 98 12/18 1637 B/P 115/60 12/18 1637 B/P Mean 78 12/18 1637 O2 Delivery Room air 12/18 1637 Temp 36.7 12/18 1637 Pulse 86 12/18 1637 Resp 18 11/28 2 1637 All vital signs available at the time of this entry have been reviewed. Condition Stable Clinical ImpressionClinical ImpressionPrimary Impression: Abscess of groin, right Discharge/Care Plan(Auto) PrescriptionsCurrent Visit ScriptsNo Known Home Medications at 1814RPT #:[id number] OF REPORTEDEmergency department wdfmkd3966-77-45W90:54:00F.[id number] a ilable for patient jhhxQMSOYNEXNWKFXS4918-70-63D73:14:51 2019-12-19 16:54:00 DFuobnxkksy711396999665-82-67X33:54:00 [facility] ([facility])EMERGENCY PROVIDER REPORTREPORT#:[id number] REPORT STATUS: SignedDATE:12/19/19 TIME: 1653 PATIENT: OSMANY POLLACK UNIT #: [id number]#: [id number] ROOM/BED:AGE: 29 SEX: F PCP PHYS: N o Primary or Family PhysicianSERVICE AUTHOR: Job Colindres MD * ALL edits or amendments must be made on the electronic/computer document * Job Colindres 12/19/19 1654:HPI-Rash/Abscess/Cellulitis GeneralConfirmed Patient YesPCPDr. Rk PresentationChief Complaint Abscess Free Text HP I NotesFree Text HPI Jirhr71-hsjb-lmq female at 17 weeks presenting for right inferior labial pain and swelling for 2 months s/p abx ? cephalexin every 6 hours completed by the patient with no relief and pain with sitting and wearing underwear. Pt denies any vaginal bleeding, fever s or chills/drainage. Review of Systems ROS StatementsAll systems rev neg except as marked. Basic Review of SystemsBasic ROS : No dysuria/frequency, HEM: No bleeding/bruising, NEURO: No change MS, NEURO: No focal deficit, PSYCH: NL thought content Focused Review of SystemsConstitutionalDenies: Chills, Fever, Malaise. RespiratoryDenies: Cough, non-productive, Dyspnea on exertion, Shortness o f breath. CardiovascularDenies: Chest pain, Dyspne a on exertion, Edema. GIDenies: Abdominal pain, Constipation, Diarrhea, Nausea, Vomiting. MusculoskeletalDenies: Back pain, Joint pain, Myalgia. SkinReports: Abscess. Denies: Erythema, Rash. Allergy/ImmunDenies: Allergic reaction, Hives, Rhinorrhea. Past Medical History - AdultStated Complaint ABSCESSAllergiesCoded Allergies:No Known Allergies (12/19/19) Home MedicationsReported MedicationsNo Known Home Medications Smoking status for patients 13 years old or older: Never Smoker Physical Exam Vital SignsVital SignsFirst Documented: Result Date Time Pulse Ox 98 12/18 1637 B/P 115/60 12/18 163 7 B/P Mean 78 12/18 1637 O2 Delivery Room air 12/18 1637 Temp 36.7 12/18 1637 Pulse 86 12/18 1637 Resp 18 12/18 1637 Last Documented: Result Date Time Pulse Ox 98 12/18 1637 B/P 115/60 07/2 2 1637 B/P Mean 78 12/18 1637 O2 Delivery Room ai r 12/18 1637 Temp 36.7 12/18 1637 Pulse 86 12/18 1637 Resp 18 12/18 1637 Review of Vital Signs Reviewed Basic Physical ExamBasic PE HEAD: Atraumatic/NC, EYES: PERRL, conj clear, RESP: No resp distress, CV: Reg rate rhythm, ABD: Soft/non-tender, EXT: No gross abnormality, NEURO: alert oriented, NEURO: gross movement NL, PSYCH: NL thought content Focused PEGeneral/Cons t General/Const Awake, Alert, No acute distress , Well appearingResp/Chest Respiratory/Chest Atraumatic, Breath sounds NL, No respiratory distress, No retractionsCardiovascular Cardiovascular Heart rate NL, Regular rhythm, Heart sounds NL, Peripheral circulation NLMS Upper Extrem Upper Extremity/MS Atraumatic, Inspection NL, No swelling, No deformityMS Lower Extrem Lower Ext/Pelvis/MS Atraumatic, Inspectio n NL, Non-tender, Neurologic intactSkin Skin Atraumatic, Color NL, No rash, Turgor NL Text/Dict Notes+ right intergluteal/perianal abscessNeurologic Neurologic Oriented X3, Speech NL, CN II - XII intact, Memory NL Re-Evaluation MDM ED CourseMedication(s) OrderedMedication(s) Ordered:Central Nervous System Agents Sig/Monica Start time Last Medication Dose Route Stop Time Status Admin Hydrocodone Bitart/ 1 TAB X1ED STA 12/18 1703 DC 12/18 Acetaminophen PO 12/18 1704 1727 Gastrointestinal Drugs Sig/Monica Start time Last Medication Dose Route Stop Time Status Admin Ondansetron Base 4 MG X1ED STA 12/18 1703 DC 12/18 PO 12/18 1704 1727 Patient Discharge Departure Vital Signs/ConditionVital SignsFirst Documented: Result Date Time Pulse Ox 98 12/18 1637 B/P 115/60 12/18 1637 B/P Mean 78 12/18 1637 O2 Delivery Room air 12/18 1637 Temp 36.7 12/18 1637 Pulse 86 12/18 1637 Resp 18 12/18 1637 Last Documented: Result Date Time Pulse Ox 98 12/18 1637 B/P 115/60 12/18 1637 B/P Mean 78 12/18 1637 O2 Delivery Room air 12/18 1637 Temp 36.7 12/18 1637 Pulse 86 12/18 1637 Resp 18 11/28 2 1637 All vital signs available at the time of this entry have been reviewed. Condition Stable Clinical ImpressionClinical ImpressionPrimary Impression: Abscess of groin, right Discharge/Care Plan(Auto) PrescriptionsCurrent Visit ScriptsNo Known Home Medications [facility] 12/19/19 1909:HPI-Rash/Abscess/Cellulitis GeneralInitial Greet Date/Time 12/19/19 1630 Interpretation Diagnostics Lab Results InterpretationResultsRecent Impressions:ULTRASOUND - US EXTREM NON [facility] 12/18 1819 Report Impression - Status: SIGNED Entered: 12/19/2019 185 IMPRESSION: Findings consistent with a right perianal abscess orphlegmon. SL: ROYER-HImpression By: MarianoSG9 - Gera Wu MD Re-Evaluation MDM Re-Evaluation/ProgressRe-Evaluation/Progress Text/Dict Notept is requesting discharge, will call Dr Beckman to discuss Time of Re-Eval 1909 at 1814RPT #:[id number] OF REPORTEDEmergency department fooigk4989-39-80Z52:54:00F.BVCM89931772-8043OLSx a ilable for patient ugvzUUOZANHUOVWJLK0452-02-39W18:10:52 2019-12-19 16:54:00 YZbefqpmtba690053594494-49-31B76:54:00 [facility] ([facility])EMERGENCY PROVIDER REPORTREPORT#:[id number] REPORT STATUS: SignedDATE:12/19/19 TIME: 1653 PATIENT: OSMANY POLALCK UNIT #: [id number]#: [id number] ROOM/BED:AGE: 29 SEX: F PCP PHYS: N o Primary or Family PhysicianSERVICE AUTHOR: Job Colindres MD * ALL edits or amendments must be made on the electronic/computer document * Job Colindres 12/19/19 1654:HPI-Rash/Abscess/Cellulitis GeneralConfirmed Patient YesPCPDkate Beckman PresentationChief Complaint Abscess Free Text HP I NotesFree Text HPI Zoqol70-usay-hib female at 17 weeks presenting for right inferior labial pain and swelling for 2 months s/p abx ? cephalexin every 6 hours completed by the patient with no relief and pain with sitting and wearing underwear. Pt denies any vaginal bleeding, fever s or chills/drainage. Review of Systems ROS StatementsAll systems rev neg except as marked. Basic Review of SystemsBasic ROS : No dysuria/frequency, HEM: No bleeding/bruising, NEURO: No change MS, NEURO: No focal deficit, PSYCH: NL thought content Focused Review of SystemsConstitutionalDenies: Chills, Fever, Malaise. RespiratoryDenies: Cough, non-productive, Dyspnea on exertion, Shortness o f breath. CardiovascularDenies: Chest pain, Dyspne a on exertion, Edema. GIDenies: Abdominal pain, Constipation, Diarrhea, Nausea, Vomiting. MusculoskeletalDenies: Back pain, Joint pain, Myalgia. SkinReports: Abscess. Denies: Erythema, Rash. Allergy/ImmunDenies: Allergic reaction, Hives, Rhinorrhea. Past Medical History - AdultStated Complaint ABSCESSAllergiesCoded Allergies:No Known Allergies (12/19/19) Home MedicationsReported MedicationsNo Known Home Medications Smoking status for patients 13 years old or older: Never Smoker Physical Exam Vital SignsVital SignsFirst Documented: Result Date Time Pulse Ox 98 12/18 1637 B/P 115/60 12/18 163 7 B/P Mean 78 12/18 1637 O2 Delivery Room air 12/18 1637 Temp 36.7 12/18 1637 Pulse 86 12/18 1637 Resp 18 12/18 1637 Last Documented: Result Date Time Pulse Ox 98 12/18 1637 B/P 115/60 12/18 1637 B/P Mean 78 12/18 1637 O2 Delivery Room air 12/18 1637 Temp 36.7 12/18 1637 Pulse 86 12/18 1637 Resp 18 12/18 1637 Review of Vital Signs Reviewed Basic Physical ExamBasic PE HEAD: Atraumatic/NC, EYES: PERRL, conj clear, RESP: No resp distress, CV: Reg rate rhythm, ABD: Soft/non-tender, EXT: No gross abnormality, NEURO: alert oriented, NEURO: gross movement NL, PSYCH: NL thought content Focused PEGeneral/Cons t General/Const Awake, Alert, No acute distress , Well appearingResp/Chest Respiratory/Chest Atraumatic, Breath sounds NL, No respiratory distress, No retractionsCardiovascular Cardiovascular Heart rate NL, Regular rhythm, Heart sounds NL, Peripheral circulation NLMS Upper Extrem Upper Extremity/MS Atraumatic, Inspection NL, No swelling, No deformityMS Lower Extrem Lower Ext/Pelvis/MS Atraumatic, Inspectio n NL, Non-tender, Neurologic intactSkin Skin Atraumatic, Color NL, No rash, Turgor NL Text/Dict Notes+ right intergluteal/perianal abscessNeurologic Neurologic Oriented X3, Speech NL, CN II - XII intact, Memory NL Re-Evaluation [facility] [place] ED CourseMedication(s) OrderedMedication(s) Ordered:Central Nervous System Agents Sig/Monica Start time Last Medication Dose Route Stop Time Status Admin Hydrocodone Bitart/ 1 TAB X1ED STA 12/18 1703 DC 12/18 Acetaminophen PO 12/18 1704 1727 Gastrointestinal Drugs Sig/Monica Start time Last Medication Dose Route Stop Time Status Admi n Ondansetron Base 4 MG X1ED STA 12/18 1703 DC 12/18 PO 12/18 1704 1727 Patient Discharge Departure Vital Signs/ConditionVital SignsFirst Documented: Result Date Time Pulse Ox 98 12/18 1637 B/P 115/60 12/18 1637 B/P Mean 78 12/18 163 7 O2 Delivery Room air 12/18 1637 Temp 36.7 12/18 1637 Pulse 86 12/18 1637 Resp 18 12/18 1637 Last Documented: Result Date Time Pulse Ox 98 12/18 1637 B/P 115/60 12/18 1637 B/P Mean 78 12/18 1637 O2 Delivery Room air 12/18 1637 Temp 36.7 12/18 1637 Pulse 86 12/18 1637 Resp 18 12/18 1637 All vital signs available at the time of this entry have been reviewed. Condition Stable Discharge/Care Plan(Auto) PrescriptionsCurrent Visit ScriptsNo Known Home Medications [facility] 12/19/19 1909:HPI-Rash/Abscess/Cellulitis GeneralInitial Greet Date/Time 12/19/19 1630 Interpretation Diagnostics Lab Results InterpretationResultsRecent Impressions:ULTRASOUND - [facility] 12/18 181 Report Impression - Status: SIGNED Entered: 12/19/2019 1850 IMPRESSION: Findings consistent with a right perianal abscess orphlegmon. SL: SG-HImpression By: [email or web address] - Gera Wu MD Re-Evaluation MDM Free Text MDM NotesFree Text MDM Notesabscess extending from right inferior labia to rectum. she describes pain on defecation and with sitting. n o inguinal lymphadenopathy. no fever. Re-Evaluation/ProgressRe-Evaluation/Progress Text/Dict Notept is requesting discharge, will call Dr Beckman to discuss Time of Re-Eval 1909 Patient Discharge Departure Clinical ImpressionClinical ImpressionPrimary Impression: Anorectal abscess Disposition DecisionOther )( Time 1927 )( Date 12/19/19 Against Medical Advic e Yes Text/Dict NoteI encouraged pt to stay for iv abx and surgical evaluation following recommendations from Dr Roche. Pt states she needs to leave and she has opted to leave AMA. Risk of progression of infection, permanet disfigurement and lossof discussed. Against Medical Advice AMA Note 1Amahsa Pollack has decided to leave our facility agains t medical advice. I have assessed the patient's ability to make an informed decision and it is m y opinion at this time that the patient has the medical decision-making capacity to comprehend information regarding current medical condition and appreciates the impact of the disease or condition and the consequences of various option s for treatment, including foregoing treatment. Th e patient possesses the ability to evaluate all treatment options, compare the risks and benefit s of each option, communicate choice in a consistent manner over time, and is able to make rational choices. I have explained to the patien t further testing, treatment, and evaluation I would like to perform during the current emergency department visit as well as any possible alternatives that could be accomplished in a timely manner. I have outlined the possible risks of foregoing any or all of these interventions and the patient understands and acknowledges that the decision to leave may result in undesirable consequences such as , permanent disability, and/or loss of current lifestyle. Even though leaving AMA is not ideal, I have instructed the patient to follow any discharge instructionsgiven, take any medication s prescribed, and resume care as soon as possible withanother provider. Additionally, we clearly stated that the patient is welcome toreturn at any time to continue care at our facility. at 2714 at 3148RPT #:[id number] OF REPORTEDEmerbaptist health medical center department [id number] a ilable for patient [id number]
--- NOTE | 2023-05-01 23:33 | EDPHYS ---
Physician Documentation [facility] Name: Rebekah Pollack Age: 32 yrs Sex: Female : 1990 Arrival Date: 05/01/2023 Time: 23:19 Bed IW1 Private MD: ED Physician Tyrell Lambert HPI: 05/01 23:33 This 32 yrs old Black Female presents to ER via Ambulatory with complaints of Back Pain.kb 23:35 Patient is a 32-year-old female with no medical history who presents for left low back kb pain that radiates down buttock and back of left leg. States pain began a week and a half ago, was intermittent but has been going constant over the last 2 days. Denies incontinence, urinary symptoms, numbness tingling. Historical: - Allergies: 23:30 PENICILLINS; kl - Home Meds: 23:30 None [Active]; kl - PMHx: 23:30 None; kl - PSHx: 23:30 None; kl - Immunization history:: Adult Immunizations not immunized. - Social history:: Smoking status: Patient denies any tobacco usage or history of. ROS: 23:34 Constitutional: Negative for fever, chills, and weight loss, kb 23:34 Back: Positive for pain at rest, pain with movement, radiated pain, of the left low back, 23:34 All other systems are negative, Exam: 23:34 Constitutional: This is a well developed, well nourished patient who is awake, alert, kb and in no acute distress. Head/Face: Normocephalic, atraumatic. ENT: Moist Mucous membranes Respiratory: Respirations even and unlabored. No increased work of breathing. Talking in full sentences Skin: Warm, dry with normal turgor. Normal color. MS/ Extremity: Pulses equal, no cyanosis. Neurovascular intact. Full, normal range of motion. Neuro: Awake and alert, GCS 15, oriented to person, place, time, and situation. Moves all extremities. Normal gait. 23:34 Back: pain, that is moderate, of the left low back, ROM is normal, Vital Signs: 23:28 BP 116 / 83; Pulse 90; Resp 18; Temp 97.7(O); Pulse Ox 100% on R/A; Weight 88.45 kg kl (R); Height 5 ft. 6 in. ; Pain 10/10; 23:28 Body Mass Index 31.47 (88.45 kg, 167.64 cm) kl 23:28 Pain Scale: Adult kl MDM: 23:28 Patient medically screened. kb 23:34 Differential diagnosis: arthritis, strain, fracture, sciatica, contusion, Herniated kb disc UTI. Data reviewed: vital signs, nurses notes. Test considered but Not performed: Labs: ua considered, but pt has no CVA tenderness and denies any urinary symptoms. X-ray: x-ray considered, but pt has no bony tenderness. Counseling: I had a detailed discussion with the patient and/or guardian regarding the historical points, exam findings, and any diagnostic results supporting the discharge/admit diagnosis, the need for outpatient follow up, a family practitioner, to return to the emergency department if symptoms worsen or persist or if there are any questions or concerns that arise at home. Administered Medications: 05:23 Drug: Ketorolac IM 30 mg IM once Route: IM; Site: left ventrogluteal; kl 23:46 Follow up: Response: No adverse reaction kl 23:35 Drug: Dexamethasone IM 10 mg IM once Route: IM; Site: left ventrogluteal; kl 23:45 Follow up: Response: No adverse reaction kl Disposition: 23:34 I was immediately available on-site in the Emergency Department for consultation in the ms3 care of the patient. Disposition Summary: 05/01/23 23:33 Discharge Ordered Notes: Location: Home kb Condition: Stable kb Diagnosis - Sciatica, left side kb Followup: kb - With: Emergency Department - When: As needed - Reason: Worsening of condition Followup: kb - With: Private Physician - When: 2 - 3 days - Reason: Recheck today's complaints, Continuance of care, Re-evaluation by your physician Discharge Instructions: - Discharge Summary Sheet kb - Sciatica, [id number] kb - Back Exercises, [id number] kb Forms: - Medication Reconciliation Form kb - Thank You Letter kb - Antibiotic Education kb - Prescription Opioid Use kb - Patient Portal Instructions kb - Leadership Thank You Letter kb - Work release form kl Prescriptions: - Prednisone 20 mg Oral Tablet - take 1 tablet ORAL route once daily for 5 days; 5 tablet; Refills: 0, Product kb Selection Permitted - orphenadrine citrate 100 mg Oral Tablet Sustained Release - take 1 tablet ORAL route 2 times per day As needed; 20 tablet; Refills: 0, kb Product Selection Permitted Signatures: Vicky Park, CHEN HUYNH-Ana Jj, ALBERTO RN Tyrell Dumas DO DO ms3
--- NOTE | 2023-05-01 23:33 | ER ---
Nurse's Notes [facility] Name: Rebekah Pollack Age: 32 yrs Sex: Female : 1990 Arrival Date: 05/01/2023 Time: 23:19 Bed IW1 Private MD: Diagnosis: Sciatica, left side Presentation: 05/01 23:28 Chief complaint: Patient states: left hip pain radiating to back of leg began on kl Thanksgiving off and on constant x last 2 days. Coronavirus screen: Vaccine status: Patient reports being unvaccinated. Ebola Screen: Patient negative for fever greater than or equal to 101.5 degrees Fahrenheit, and additional compatible Ebola Virus Disease symptoms. Initial Sepsis Screen: Does the patient meet any 2 criteria? No. Patient's initial sepsis screen is negative. Does the patient have a suspected source of infection? No. Patient's initial sepsis screen is negative. Risk Assessment: Do you want to hurt yourself or someone else? Patient reports no desire to harm self or others. 23:28 Method Of Arrival: Ambulatory 23:28 Acuity: ERASMO 4 Triage Assessment: 23:31 General: Appears in no apparent distress. Behavior is calm, cooperative. Pain: Complains of pain in left lower back Pain radiates to back of left leg Pain currently is 1. out of 10 on a pain scale. Quality of pain is described as aching, radiating, sharp. Musculoskeletal: Circulation, motion, and sensation intact. Range of motion: Reports pain in back of left leg Pain is 10 out of 10 on a pain scale. Historical: - Allergies: 23:30 PENICILLINS; kl - Home Meds: 23:30 None [Active]; kl - PMHx: 23:30 None; kl - PSHx: 23:30 None; kl - Immunization history:: Adult Immunizations not immunized. - Social history:: Smoking status: Patient denies any tobacco usage or history of. Screenin:46 [facility] ED Fall Risk Assessment (Adult) History of falling in the last 3 months, including since admission No falls in past 3 months (0 pts) Confusion or Disorientation No (0 pts) Intoxicated or Sedated No (0 pts) Impaired Gait Yes (1 pt) Mobility Assist Device Used No (0 pt) Altered Elimination No (0 pt) Score/Fall Risk Level 0 - 2 = Low Risk Oriented to surroundings, Maintained a safe environment. Abuse screen: Denies threats or abuse. Nutritional screening: No deficits noted. Tuberculosis screening: No symptoms or risk factors identified. Assessment: 23:46 Reassessment: Patient states feeling better. Neuro: No deficits noted. Vital Signs: 23:28 BP 116 / 83; Pulse 90; Resp 18; Temp 97.7(O); Pulse Ox 100% on R/A; Weight 88.45 kg kl (R); Height 5 ft. 6 in. ; Pain 10/10; 23:28 Body Mass Index 31.47 (88.45 kg, 167.64 cm) 23:28 Pain Scale: Adult ED Course: 23:24 Patient arrived in ED. ag3 23:25 Tyrell Lambert DO is Attending Physician. ms3 23:28 Vicky Park FNP-C is PSYCHIATRICP. kb 23:30 Triage completed. kl 23:46 Patient has correct armband on for positive identification. kl 23:46 No provider procedures requiring assistance completed. Patient did not have IV access kl during this emergency room visit. Administered Medications: 05:23 Drug: Ketorolac IM 30 mg IM once Route: IM; Site: left ventrogluteal; 23:46 Follow up: Response: No adverse reaction kl 23:35 Drug: Dexamethasone IM 10 mg IM once Route: IM; Site: left ventrogluteal; kl 23:45 Follow up: Response: No adverse reaction Outcome: 23:33 Discharge ordered by MD. kb 23:46 Discharged to home ambulatory, kl 23:46 Condition: stable 23:46 Discharge instructions given to patient, Instructed on discharge instructions, follow up and referral plans. medication usage, Demonstrated understanding of instructions, follow-up care, medications, Prescriptions given X 2, 23:47 Patient left the ED. Signatures: Vicky Park FNP-C FNP-Ana Jj RN RN Sneha Davalos ag3 Tyrell Lambert DO DO ms3
[2023-05-01] MEDS ORDERED: KETOROLAC 30 MG/ML INJ ONE (23:48)
[2023-05-01] MEDS ORDERED: dexAMETHasone 10 MG/ML VIAL ONE (23:48)
[2023-05-02 01:35] VITALS: BP 116/83; TEMP 97.7; O2SAT 100
== END 2023-05-01 23:47 | disposition home or self-care (01) ==
LOC: ER 23:19
DX: M54.32 Sciatica, left side (principal)
CPT/HCPCS: 96372; 99284; J1100